=== PATIENT | male | born 1985 | race Caucasian/White ===

== ENCOUNTER 2024-07-25 20:51 | Emergency (ER) | payer OTHER, SELFPAY ==
[2024-07-25 20:51] VITALS: BMI 22.5
[2024-07-25 21:45] VITALS: BP 122/77
[2024-07-25 22:59] VITALS: BP 128/93
[2024-07-25] MEDS: NSS 1000 IV (23:26)
[2024-07-25] MEDS: ATIVAN 1 MG IV (23:27)
[2024-07-25 23:34] LABS: % Basophils 0.7 % (0-2); % Eosinophils 0.5 % (0-6); % Immature Granulocytes 0.3 % (0-0.5); % Lymphocytes 20.6 % (20.5-51.1); % Monocytes 6.6 % (1.7-9.3); % Neutrophils 71.3 % (42.2-75.2); Absolute Basophils 0.1 10^3/uL (0-0.2); Absolute Eosinophils 0.1 10^3/uL (0-0.7); Absolute Immature Granulocytes 0.1 10^3/uL (0-0.05); Absolute Neutrophils 10.4 10^3/uL (1.4-6.5); Hemoglobin 13.9 g/dL (13.0-18.0); Mean Corp Hgb Conc. 35.6 g/dL (33.0-37.0); Mean Corpuscular Hgb 28.3 pg (27.0-31.0); Mean Corpuscular Volume 79.3 fL (80.0-94.0); Mean Platelet Volume 9.5 fL (7.4-10.4); Nucleated Red Blood Cells % 0 % (-); Platelet Count 320 10^3/uL (130-400); Red Blood Cell Count 4.92 10^6/uL (4.70-6.10); Red Cell Dist. Width 14.3 % (11.5-14.5); White Blood Cell Count 14.6 10^3/uL (4.8-10.8)
[2024-07-26] VITALS (12 sets, daily range): BP systolic 96–123; BP diastolic 61–88
[2024-07-26 00:16] LABS: ALT (SGPT) 37 U/L (0-50); AST (SGOT) 52 U/L (17-59); Acetaminophen < 10 ug/ml (10-30); Albumin 4.2 g/dl (3.5-5.0); Alkaline Phosphatase 65 U/L (38-126); Blood Urea Nitrogen 14 mg/dl (9-20); Calcium 10.4 mg/dl (8.4-10.2); Carbon Dioxide 26 mmol/L (22-30); Chloride 102 mmol/L (98-107); Creatine Phosphokinase 611 U/L (55-170); Estimated Creatinine Clearance > 125 ml/min; Glucose 293 mg/dl (70-99); Lipase 49 U/L (23-300); Potassium 4.5 mmol/L (3.5-5.1); Salicylate < 1.0 mg/dl (2.0-20.0); Sodium 140 mmol/L (135-145); Total Bilirubin 1.7 mg/dl (0.2-1.3); Total Protein 6.4 g/dl (6.3-8.2); eGFR > 60.00
[2024-07-26 00:20] LABS: Alcohol None Detected
[2024-07-26] MEDS: ATIVAN 2 MG IM (00:31)
[2024-07-26] MEDS: HALDOL 10 MG IM (00:35)
[2024-07-26 00:45] LABS: TSH Reflex To Free T4 0.83 uIU/ml (0.47-4.68)
--- NOTE | 2024-07-26 02:46 | ED.GENMED ---
History of Present Illness
General
Chief Complaint: Crisis Evaluation
Source: patient
Exam Limitations: clinical condition
Time Seen by Provider: 07/25/24 22:51
Nursing documentation reviewed up to this point in time: agreed with
History of Present Illness
History of Present Illness:
This is a 39-year-old gentleman with history of bipolar disorder, follows regularly with [facility], maintained on several psychiatric medications. He also admits to substance abuse, primarily speed as well as Xanax and he presents
voluntarily requesting help in entering a detox center. He does admit to snorting amphetamines just prior to arrival. He generally snorts occasionally smokes, denies IV drug use.
Currently residing with a friend.
He denies suicidal thoughts.
Past History
Past History
ED Past Medical History: Asthma, HTN (was told dentist would not removed wisdom teeth due to bp being too high one year ago, but never followed up. Has cut down on salt since.), Psychiatric (Bipolar disorder, substance abuse) and Other (Has had
genital herpes in the past)
ED Past Surgical History: Other (Left knee arthroscopic surgery in the past. Knee has been feeling 'stiff' lately)
Social History
Tobacco: Smoker ('Down to 2 packs a week')
Alcohol: Occasional
Drug: Cocaine (Amphetamines) and Other (Xanax)
Personal: Single
Living: with family (Resides with a friend)
Employment: Employed (Own [employer] business.)
Family History
Family History: Other (Noncontributory)
Phy Exam
Physical Exam
Physical Exam:
GENERAL: 39-year-old gentleman appears somewhat older than stated age, disheveled and unkempt, moderately anxious, mildly diaphoretic. Moderately pressured speech, scattered thought processes but able to answer questions appropriately.
EYE: pupils equal and reactive. anicteric
NECK: Supple, nontender, no meningismus, no significant adenopathy.
ENT: oral mucosa is moist. No rhinorrhea.
CARDIAC: Regular rhythm, intermittently mildly tachycardic. no murmur.
LUNGS: Clear breath sounds bilaterally, no acute respiratory distress, no wheezes/rales/rhonchi
ABDOMEN: Soft, nondistended, without focal tenderness, no r/g, no cvat. normoactive BS.
NEUROLOGICAL: Alert and oriented x3, no focal neuro deficits.
SKIN: Warm and mildly diaphoretic, normal color, skin intact. No rash.
MUSCULOSKELETAL: No C/C/E. peripheral pulses are full and equal b/l. No palpable tenderness.
PSYCH: Moderately anxious, pressured speech with scattered thought processes. Denies suicidal thoughts or plan. Admits to substance use and requesting help for detox.
Course
Orders/Labs/Results
Orders:
Orders
07/25/24 23:00
Crisis Consult Routine
Reason for Consult: bipolar, agitation, drug use
Urine Drug Abuse Screen Urgent
07/25/24 23:01
Electrocardiogram (*1) Urgent
Reason for Study: Abdominal Pain
EKG- Treatment ONCE
07/25/24 23:02
Urinalysis Reflex To Culture Urgent
0.9% Sodium Chloride 1000 ml [Nss] 1,000 ml IV BOLUS
07/25/24 23:04
Lorazepam [Ativan] 1 mg IV NOW STA
07/25/24 23:23
Acetaminophen Urgent
Alcohol Urgent
CPK [Creatine Phosphokinase] Urgent
Complete Blood Count/With Diff Urgent
Comprehensive Metabolic Panel Urgent
Lipase Urgent
Salicylate Urgent
TSH Reflex To Free T4 Urgent
Comment: ADD ON
07/25/24 23:34
Add On- LAB Urgent
Tests Added?: TSH w reflex to free T-4
07/26/24 00:10
1:1 Observation - Suicide/ Violent Behavior As Directed
Lorazepam [Ativan] 2 mg .ROUTE .STK-MED ONE
Restraints - Violent As Directed
Restraint Type-: Soft Limb-4 point/4 rails
Apply From (date): 07/26/24
Apply from (time): 00:10
Remove (date): 07/26/24
Remove (time): 04:10
07/26/24 00:11
Haloperidol Lactate [Haldol] 10 mg .ROUTE .STK-MED ONE
07/26/24 00:29
Lorazepam [Ativan] 2 mg IM NOW STA
07/26/24 00:34
Haloperidol Lactate [Haldol] 10 mg IM NOW STA
Abnormal Lab Results
07/25/24
23:23
WBC 14.6 H 10^3/uL
(4.8-10.8)
MCV 79.3 L fL
(80.0-94.0)
Abs Immat Gran (auto) 0.1 H 10^3/uL
(0-0.05)
Absolute Neuts (auto) 10.4 H 10^3/uL
(1.4-6.5)
Absolute Monos (auto) 1.0 H 10^3/uL
(0.1-0.6)
Glucose 293 H mg/dl
(70-99)
Calcium 10.4 H mg/dl
(8.4-10.2)
Total Bilirubin 1.7 H mg/dl
(0.2-1.3)
Creatine Kinase 611 H U/L
(55-170)
Salicylates < 1.0 L mg/dl
(2.0-20.0)
Acetaminophen < 10 L ug/ml
(10-30)
07/25/24 23:23
07/25/24 23:23
Vital Signs
Initial and Last Documented VS:
Initial Vital Signs
Temp Pulse Resp Pulse Ox
98.5 F 104 26 100
07/25/24 21:01 07/25/24 21:01 07/25/24 21:01 07/25/24 21:01
Last Documented Vital Signs
Temp Pulse Resp BP Pulse Ox
98.5 F 63 18 121/73 97
07/25/24 21:01 07/26/24 04:00 07/26/24 04:00 07/26/24 04:00 07/26/24 04:00
MDM/Problems Addressed
Differential Diagnosis Includes:
Concern for polysubstance drug use as cause for agitation, diaphoresis. Other consideration withdrawal syndrome such as alcohol withdrawal, opioid withdrawal however patient denies the substances.
Other consideration is exacerbation of bipolar depression with psychosis.
Will check labs, UDS and consult crisis.
Chronic conditions affecting care: Psychiatric illness and Other (Substance abuse)
*Pulse Oximetry
Patient hypoxic: no
*EKG
Interpreted by ED Provider?: Yes
Interpretation: normal
Comparison EKG: no changes (Unchanged from previous March 2021)
Rate: normal
Rhythm: sinus
[place]: normal axis
Interval: normal interval
QRS Pattern: normal QRS
Ischemia: no ischemia
*Critical Care Note
Total Time (30-74mins, 75-104mins- exclusive of procedures): Not Applicable
Update Note
Update Note:
Patient has become significantly agitated requiring medical as well as physical restraints for patient as well as staff security.
He has been evaluated by [facility]. Crisis counselor does not feel patient has acute psychiatric issue. He continues to deny suicidal thoughts or plan.
He continues to request help with detox and [facility] service desk specialist has been notified. Will evaluate in the morning.
07/26/2024 06:00 AM
After an IM dose of Haldol and Ativan patient has remained calm, resting calmly, awakens calmly and has had no further episodes of agitation, outbursts.
Labs show mildly elevated white blood cell count, moderately elevated glucose of 293 with normal electrolytes, without acidosis, mildly elevated CPK of 600. He has been given IV fluids. Alcohol is negative, salicylates, acetaminophen are negative.
UDS is still pending.
I suspect elevated CPK, random glucose due to significant agitation.
Will check fingerstick glucose.
Awaiting B cares evaluation.
ED Attending Note
-
Portions of this chart may have been created with voice recognition software.� Occasional wrong word or��sound alike� substitutions may have occurred due to the inherent limitations of voice recognition software.
Discharge Plan
Departure
Patient Disposition: Acute Rehab Facility
Date of Disposition: 07/26/24
Time of Disposition: 07:13
Condition: Good
Discharge Problem:
Psychoactive substance use disorder
Prescriptions:
No Action
bupropion HCl 100 MG tablet
300 mg PO DAILY
sulfamethoxazole-trimethoprim 1 TABLET tablet
1 tab PO BID Qty: 14 0RF
cephalexin 500 MG capsule
500 mg PO TID Qty: 15 0RF
trazodone 150 MG tablet
150 mg PO HS
hydroxyzine pamoate [Vistaril] 25 MG capsule
25 mg PO TID
phenazopyridine 200 MG tablet
200 mg PO BID Qty: 6 0RF
mupirocin 1 APPLIC ointment
1 applic topical TID Qty: 1 0RF
Referrals:
Rehana Henderson DO [Family Provider] -
Interventions
Interventions:
*Risk Screen - Suicide Last Done: 07/25/24 21:01
*General Assessment Last Done: 07/25/24 21:01
*Neglect/Abuse Screening Last Done: 07/25/24 21:01
ED- Fall Risk Assessment Last Done: 07/25/24 21:01
*ED COVID-19 Vaccine History Last Done: 07/25/24 21:01
ED-Psychological Assessment Last Done: 07/25/24 21:46
Discharge Date and Time
Print Language: SLOVENIAN
[2024-07-26 07:58] LABS: Glucose - Point of Care 133 mg/dl (70-99)
--- NOTE | 2024-07-26 14:27 | CM ---
CM consult for homeless. Patient stated his father kicked him out of his parents' home because of a big 'fabricated story' his father told on him. He was transferred to hospital via ambulance. Patient easily is falling asleep and slightly hard to
arouse. He said he was going to call his grandma, when speaking with the nurse, but he forgot her number. He then told the CM he can't remember his grandma's number because she 'with my grandpa'.
CM called several shelters in the area with no luck of contact. Some numbers were out of service. Babs requested a Lyft ride to the [facility] in [place], because his friend lives right across the street from it.
CM is in the process of waiting for Lyft to find a ride on the mode.
[2024-07-26 14:54] LABS: Urine Albumin Trace (Neg - Trace); Urine Bilirubin Negative (Negative); Urine Character Clear (Clear); Urine Color Yellow; Urine Glucose 3+ (Negative); Urine Ketone 2+ (Negative); Urine Leukocyte Negative (Negative); Urine Nitrite Negative (Negative); Urine Occult Blood Negative (Negative); Urine Specific Gravity 1.025 (<1.030); Urine Urobilinogen Negative (Neg - 1+)
[2024-07-26 15:13] LABS: Amphetamines Positive (Negative); Barbiturates Negative (Negative); Benzodiazepines Positive (Negative); Buprenorphine Negative (Negative); Cocaine Negative (Negative); Marijuana Positive (Negative); Methadone Negative (Negative); Methamphetamines Positive (Negative); Opiates Negative (Negative); Phencyclidine Negative (Negative); Tricyclic Antidepressants Negative (Negative)
[2024-07-26 15:32] LABS: Fentanyl, Urine Negative (Negative)
== END 2024-07-26 14:59 ==
LOC: EMR 20:51
PROVIDERS: EMERGENCY PHYSICIAN Emergency Medicine; FAMILY PHYSICIAN Family Medicine
DX: F19.10 Other psychoactive substance abuse, uncomplicated (principal); F15.10 Other stimulant abuse, uncomplicated; R45.1 Restlessness and agitation; F31.9 Bipolar disorder, unspecified; Z78.1 Physical restraint status; R73.9 Hyperglycemia, unspecified; I10 Essential (primary) hypertension; J45.909 Unspecified asthma, uncomplicated; F41.9 Anxiety disorder, unspecified; F32.A Depression, unspecified; F17.210 Nicotine dependence, cigarettes, uncomplicated; Z87.438 Personal history of other diseases of male genital organs; Z88.8 Allergy status to other drugs, medicaments and biological substances
CPT/HCPCS: 99285; 96374; 96361; 96372 ×2; 80053; 80143; 80179; 80306; 80307; 81003; 82077; 82550; 82962; 83690; 84443; 85025; 93005